=== PATIENT | female | born 1935 | race Caucasian/White ===

== ENCOUNTER → 2016-03-27 | Outpatient (CLI) | payer MEDICARE, BC ==
[2016-03-27 11:38] LABS: PROTHROMBIN TIME 18.9 SEC (11.4-15.4)
== END ==
LOC: OD 09:59
PROVIDERS: ATTEND Internal Medicine
DX: Z79.01 Long term (current) use of anticoagulants (principal)
CPT/HCPCS: 36415; 85610

== ENCOUNTER → 2016-04-08 | Outpatient (CLI) | payer MEDICARE, BC ==
[2016-04-08 12:01] LABS: PROTHROMBIN TIME 24.5 SEC (11.4-15.4)
== END ==
LOC: OD 10:54
PROVIDERS: ATTEND Internal Medicine
DX: Z79.01 Long term (current) use of anticoagulants (principal)
CPT/HCPCS: 36415; 85610

== ENCOUNTER → 2016-04-16 | Outpatient (CLI) | payer MEDICARE, BC ==
--- NOTE | 2016-04-16 17:06 | XCELERA REPORT ---
[address] [address] Upper Extremity Arterial Evaluation Name: ACE BREWER Age: 80 yrs Gender: Female : 1935 Patient Status: Outpatient Patient Location: Study Date: 04/16/2016 10:44 AM Procedure: A duplex scan of the upper extremity arteries was performed on the right. Reason For Study: RUE PAIN, CLAUDICATION, PVD Ordering Physician: TEREZA MARTIN Performed By: Celeste Husain Measurements and Calculations Right Left Prox SCLA PSV -91.3 cm/sec Mid SCLA PSV 100.2 cm/sec Ax A PSV 86.4 cm/sec Prox Brach A PSV 123.2 cm/sec Dist Brach A PSV 93.4 cm/sec Dist Rad A PSV 41.3 cm/sec Dist Ulnar A PSV 53.9 cm/sec Ax A PSV 86.4 cm/sec Dist Brach A PSV 93.4 cm/sec Dist Rad A PSV 41.3 cm/sec Dist Ulnar A PSV 53.9 cm/sec Mid SCLA PSV 100.2 cm/sec Prox Brach A PSV 123.2 cm/sec Right Side Arterial Evaluation Normal velocity, waveform and multiphasic flow are present, from the Common Carotid artery to the forearm vessels. 0 % stenosis is noted. Interpretation Summary No hemodynamically significant lesions noted in the right upper extremity arteries, on duplex imaging, at rest. : TEREZA MARTIN, [place] >
== END ==
LOC: SP 10:37
PROVIDERS: ATTEND Internal Medicine
DX: M79.601 Pain in right arm (principal); I73.9 Peripheral vascular disease, unspecified
CPT/HCPCS: 93931

== ENCOUNTER → 2016-05-09 | Outpatient (CLI) | payer MEDICARE, BC ==
[2016-05-09 13:40] LABS: PROTHROMBIN TIME 22.9 SEC (11.4-15.4)
== END ==
LOC: OD 12:36
PROVIDERS: ATTEND Internal Medicine
DX: Z79.01 Long term (current) use of anticoagulants (principal)
CPT/HCPCS: 36415; 85610

== ENCOUNTER → 2016-06-11 | Outpatient (CLI) | payer MEDICARE, BC ==
[2016-06-11 12:47] LABS: PROTHROMBIN TIME 28.1 SEC (11.4-15.4)
== END ==
LOC: OD 11:58
PROVIDERS: ATTEND Internal Medicine
DX: Z79.01 Long term (current) use of anticoagulants (principal)
CPT/HCPCS: 36415; 85610

== ENCOUNTER → 2016-07-15 | Outpatient (CLI) | payer MEDICARE, BC ==
[2016-07-15 12:33] LABS: PROTHROMBIN TIME 22.6 SEC (11.4-15.4)
== END ==
LOC: OD 11:32
PROVIDERS: ATTEND Internal Medicine
DX: Z79.01 Long term (current) use of anticoagulants (principal); Z51.81 Encounter for therapeutic drug level monitoring
CPT/HCPCS: 36415; 85610

== ENCOUNTER → 2016-08-06 | Outpatient (CLI) | payer MEDICARE, BC ==
[2016-08-06 11:30] LABS: ABSOLUTE BASOPHILS # (AUTO) 0.1 10^3/uL (0.0-0.2); ABSOLUTE EOSINOPHILS # (AUTO) 0.2 10^3/uL (0.0-0.6); ABSOLUTE LYMPHOCYTES (AUTO) 1.8 10^3/uL (0.5-4.7); ABSOLUTE MONOCYTES (AUTO) 0.5 10^3/uL (0.1-1.4); ABSOLUTE NEUT (AUTO) 6.1 10^3/uL (1.7-8.2); BASOPHILS % (AUTO) 0.8 % (0-2); EOSINOPHILS % (AUTO) 2.1 % (0-6); HEMATOCRIT 45.7 % (36.0-47.0); HEMOGLOBIN 15.1 g/dL (12.0-15.5); HGB HCT DIFFERENCE -0.4; LYMPHOCYTES % (AUTO) 20.7 % (13-45); MEAN CORPUSCULAR HEMOGLOBIN 28.8 pg (27.0-33.4); MEAN CORPUSCULAR HGB CONC 33.1 g/dL (32.0-36.0); MEAN CORPUSCULAR VOLUME 87 fl (80-97); MONOCYTES % (AUTO) 5.5 % (3-13); RED BLOOD COUNT 5.26 10^6/uL (3.72-5.28); RED CELL DISTRIBUTION WIDTH 16.1 % (11.5-14.0); SEGMENTED NEUTROPHILS % (AUTO) 70.9 % (42-78); WHITE BLOOD COUNT 8.6 10^3/uL (4.0-10.5)
[2016-08-06 11:51] LABS: ALANINE AMINOTRANSFERASE 29 U/L (9-52); ALKALINE PHOSPHATASE 87 U/L (38-126); ANION GAP 9 (5-19); ASPARTATE AMINO TRANSFERASE 22 U/L (14-36); BILIRUBIN,DIRECT 0.3 mg/dL (0.0-0.4); BILIRUBIN,TOTAL 0.7 mg/dL (0.2-1.3); BLOOD UREA NITROGEN 20 mg/dL (7-20); CALCIUM 9.4 mg/dL (8.4-10.2); CARBON DIOXIDE 28 mmol/L (22-30); CHLORIDE 104 mmol/L (98-107); CHOLESTEROL 188.14 mg/dL (0-200); CREATININE RESULT 0.59 mg/dL (0.52-1.25); Direct HDL 44 mg/dL (>40); GLUCOSE 87 mg/dL (75-110); POTASSIUM 4.8 mmol/L (3.6-5.0); SODIUM 140.5 mmol/L (137-145); TOTAL PROTEIN 6.7 g/dL (6.3-8.2); TRIGLYCERIDES 124 mg/dL (<150); URIC ACID 6.8 mg/dL (2.5-7.5)
[2016-08-06 12:02] LABS: DIRECT LDL 99 mg/dL (<100)
== END ==
LOC: OD 10:08
PROVIDERS: ATTEND Internal Medicine
DX: M10.9 Gout, unspecified (principal); I10 Essential (primary) hypertension; E78.5 Hyperlipidemia, unspecified
CPT/HCPCS: 36415; 80053; 80061; 84443; 84550; 85025

== ENCOUNTER → 2016-09-04 | Outpatient (CLI) | payer MEDICARE, BC | LOC: OD 09:12 | PROVIDERS: ATTEND Internal Medicine | DX: Z79.01 Long term (current) use of anticoagulants (principal) | CPT/HCPCS: 36415; 85610 ==

== ENCOUNTER → 2016-09-16 | Outpatient (CLI) | payer MEDICARE, BC | LOC: OD 10:21 | PROVIDERS: ATTEND Internal Medicine | DX: Z79.01 Long term (current) use of anticoagulants (principal); Z51.81 Encounter for therapeutic drug level monitoring | CPT/HCPCS: 36415; 85610 ==

== ENCOUNTER → 2016-10-15 | Outpatient (CLI) | payer MEDICARE, BC ==
[2016-10-15 16:10] LABS: PROTHROMBIN TIME 22.6 SEC (11.4-15.4)
== END ==
LOC: OD 09:08
PROVIDERS: ATTEND Internal Medicine
DX: Z79.01 Long term (current) use of anticoagulants (principal)
CPT/HCPCS: 36415; 85610

== ENCOUNTER → 2016-10-25 | Outpatient (CLI) | payer MEDICARE, BC ==
[2016-10-25 10:00] LABS: PROTHROMBIN TIME 31.4 SEC (11.4-15.4)
== END ==
LOC: OD 08:47
PROVIDERS: ATTEND Internal Medicine
DX: Z79.01 Long term (current) use of anticoagulants (principal)
CPT/HCPCS: 36415; 85610

== ENCOUNTER → 2016-11-20 | Outpatient (CLI) | payer MEDICARE, BC ==
[2016-11-20 10:59] LABS: PROTHROMBIN TIME 31.2 SEC (11.4-15.4)
== END ==
LOC: OD 09:02
PROVIDERS: ATTEND Internal Medicine
DX: Z79.01 Long term (current) use of anticoagulants (principal)
CPT/HCPCS: 36415; 85610

== ENCOUNTER → 2016-12-23 | Outpatient (CLI) | payer MEDICARE, BC | LOC: OD 11:42 | PROVIDERS: ATTEND Internal Medicine | DX: Z79.01 Long term (current) use of anticoagulants (principal) | CPT/HCPCS: 36415; 85610 ==

== ENCOUNTER → 2017-01-20 | Outpatient (CLI) | payer MEDICARE, BC ==
[2017-01-20 11:08] LABS: PROTHROMBIN TIME 36.7 SEC (11.4-15.4)
== END ==
LOC: OD 09:35
PROVIDERS: ATTEND Internal Medicine
DX: Z79.01 Long term (current) use of anticoagulants (principal)
CPT/HCPCS: 36415; 85610

== ENCOUNTER → 2017-02-03 | Outpatient (CLI) | payer MEDICARE, BC ==
[2017-02-03 12:05] LABS: PROTHROMBIN TIME 22.8 SEC (11.4-15.4)
== END ==
LOC: OD 10:27
PROVIDERS: ATTEND Internal Medicine
DX: Z79.01 Long term (current) use of anticoagulants (principal)
CPT/HCPCS: 36415; 85610

== ENCOUNTER → 2017-02-20 | Outpatient (CLI) | payer MEDICARE, BC ==
[2017-02-20 12:58] LABS: PROTHROMBIN TIME 21.7 SEC (11.4-15.4)
== END ==
LOC: OD 11:42
PROVIDERS: ATTEND Internal Medicine
DX: Z79.01 Long term (current) use of anticoagulants (principal)
CPT/HCPCS: 36415; 85610

== ENCOUNTER → 2017-03-04 | Outpatient (CLI) | payer MEDICARE, BC ==
[2017-03-04 14:30] LABS: PROTHROMBIN TIME 20.6 SEC (11.4-15.4)
== END ==
LOC: OD 13:55
PROVIDERS: ATTEND Internal Medicine
DX: Z51.81 Encounter for therapeutic drug level monitoring (principal); Z79.01 Long term (current) use of anticoagulants
CPT/HCPCS: 36415; 85610

== ENCOUNTER → 2017-03-20 | Outpatient (CLI) | payer MEDICARE, BC ==
[2017-03-20 10:37] LABS: INTERNATIONAL RATION (INR) 2.38; PROTHROMBIN TIME 27.2 SEC (11.4-15.4)
== END ==
LOC: OD 09:42
PROVIDERS: ATTEND Internal Medicine
DX: Z79.01 Long term (current) use of anticoagulants (principal)
CPT/HCPCS: 36415; 85610

== ENCOUNTER → 2017-04-22 | Outpatient (CLI) | payer MEDICARE, BC ==
[2017-04-22 10:25] LABS: INTERNATIONAL RATION (INR) 1.55; PROTHROMBIN TIME 19.5 SEC (11.4-15.4)
== END ==
LOC: OD 09:33
PROVIDERS: ATTEND Internal Medicine
DX: Z51.81 Encounter for therapeutic drug level monitoring (principal); Z79.01 Long term (current) use of anticoagulants
CPT/HCPCS: 36415; 85610

== ENCOUNTER → 2017-05-06 | Outpatient (CLI) | payer MEDICARE, BC ==
[2017-05-06 10:19] LABS: INTERNATIONAL RATION (INR) 2.17; PROTHROMBIN TIME 25.3 SEC (11.4-15.4)
== END ==
LOC: OD 09:28
PROVIDERS: ATTEND Internal Medicine
DX: Z51.81 Encounter for therapeutic drug level monitoring (principal); Z79.01 Long term (current) use of anticoagulants
CPT/HCPCS: 36415; 85610

== ENCOUNTER → 2017-06-05 | Outpatient (CLI) | payer MEDICARE, BC ==
[2017-06-05 11:54] LABS: INTERNATIONAL RATION (INR) 2.32; PROTHROMBIN TIME 26.7 SEC (11.4-15.4)
== END ==
LOC: OD 10:33
PROVIDERS: ATTEND Internal Medicine
DX: Z79.01 Long term (current) use of anticoagulants (principal)
CPT/HCPCS: 36415; 85610

== ENCOUNTER → 2017-07-09 | Outpatient (CLI) | payer MEDICARE, BC ==
[2017-07-09 13:22] LABS: INTERNATIONAL RATION (INR) 5.55; PROTHROMBIN TIME 52.8 SEC (11.4-15.4)
== END ==
LOC: OD 09:26
PROVIDERS: ATTEND Internal Medicine
DX: Z79.01 Long term (current) use of anticoagulants (principal)
CPT/HCPCS: 36415; 85610

== ENCOUNTER 2017-09-01 10:31 | Inpatient (IN) | payer MEDICARE, BC ==
--- NOTE | 2017-09-01 12:14 | XCELERA REPORT ---
[address] [address] Lower Extremity Venous Evaluation Name: ACE BREWER Age: 82 yrs Gender: Female : 1935 Patient Status: Outpatient Patient Location: Study Date: 09/01/2017 11:05 AM Procedure: Color flow and duplex imaging bilaterally of the veins of the lower extremities as well as the Common Femoral veins. Reason For Study: RLE ACUTE EMBOLISM AND THROMBOSIS RT TIBIAL VEIN Ordering Physician: TEREZA MARTIN Performed By: Monique Camejo Right Sided Venous Evaluation Abnormal vessel filling , no compression and , enlarged, echogenic content, no Colour flow in the distal Femoral and Popliteal. Gastrocnemius has some recanalization. Superficial phlebitis in a varicose vein. Left Sided Venous Evaluation The left common femoral vein is fully compressible. Spontaneous and phasic flow is present in the left common femoral vein. Interpretation Summary Fairly fresh looking DVT in the Femoral and Popliteal, Aged in Gastrocnemius. Some superficial phlebitis. In the Right lower extremity. : TEREZA MARTIN [place]
[2017-09-01] MEDS ORDERED: MAGNESIUM HYDROXIDE SUSP 30 ML UDCUP PO PRN (15:43)
--- NOTE | 2017-09-01 16:57 | PDOC H&P ---
History of Present Illness Admission Date/PCP: 09/01/17 15:33 TEREZA MARTIN, Patient complains of: right leg pain History of Present Illness: ACE BREWER is a 82 year old female Past Medical History Cardiac Medical History: Reports: DVT, Hypertension Musculoskeltal Medical History: Reports: Arthritis Past Surgical History Past Surgical History: Reports: Hysterectomy Social History Smoking Status: Never Smoker Frequency of Alcohol Use: None Hx Recreational Drug Use: No - Advance Directive Resuscitation Status: Full Code Family History Family History: Reviewed & Not Pertinent Parental Family History Reviewed: Yes Children Family History Reviewed: Yes Sibling(s) Family History Reviewed.: Yes Review of Systems All systems: as per H Physical Exam General appearance: PRESENT: mild distress Head exam: PRESENT: atraumatic Eye exam: PRESENT: conjunctiva pink Neck exam: ABSENT: carotid bruit, JVD Respiratory exam: PRESENT: clear to auscultation erika Cardiovascular exam: PRESENT: RRR, +S1, +S2 Pulses: PRESENT: +1 pedal pulses bilateral GI/Abdominal exam: PRESENT: soft Extremities exam: PRESENT: full ROM, pedal edema, tenderness Musculoskeletal exam: PRESENT: full ROM Neurological exam: PRESENT: alert, awake, oriented to person, oriented to place , oriented to time Assessment & Plan - Diagnosis (1) Acute deep vein thrombosis (DVT) of right lower extremity Qualifiers: Affected thrombotic vein of extremity: femoral Qualified Code(s): I82.411 - Acute embolism and thrombosis of right femoral vein Is this a current diagnosis for this admission?: Yes Plan: We will start Lovenox. Keep leg elevated and consider starting Coumadin. 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 We will need acute treatment for DVT/PE with Lovenox and overlap with Coumadin - Inpatient Certification Medical Necessity: Failure to Improve With Outpatient Therapy, Need for Pain Control, Risk of Complication if Not Cared For in Hospital
[2017-09-01 17:23] LABS: ABSOLUTE BASOPHILS # (AUTO) 0.1 10^3/uL (0.0-0.2); ABSOLUTE EOSINOPHILS # (AUTO) 0.2 10^3/uL (0.0-0.6); ABSOLUTE LYMPHOCYTES (AUTO) 2.1 10^3/uL (0.5-4.7); ABSOLUTE MONOCYTES (AUTO) 0.7 10^3/uL (0.1-1.4); ABSOLUTE NEUT (AUTO) 6.6 10^3/uL (1.7-8.2); BASOPHILS % (AUTO) 1.4 % (0-2); HEMATOCRIT 45.3 % (36.0-47.0); HEMOGLOBIN 15.3 g/dL (12.0-15.5); LYMPHOCYTES % (AUTO) 21.8 % (13-45); MEAN CORPUSCULAR HEMOGLOBIN 30.6 pg (27.0-33.4); MEAN CORPUSCULAR HGB CONC 33.8 g/dL (32.0-36.0); MEAN CORPUSCULAR VOLUME 91 fl (80-97); MONOCYTES % (AUTO) 6.8 % (3-13); PLATELET COUNT 531 10^3/uL (150-450); RED CELL DISTRIBUTION WIDTH 16.7 % (11.5-14.0); TOTAL CELLS COUNTED % (AUTO) 100 %; WHITE BLOOD COUNT 9.8 10^3/uL (4.0-10.5)
[2017-09-01 17:30] LABS: INTERNATIONAL RATION (INR) 1.75; PROTHROMBIN TIME 21.3 SEC (11.4-15.4)
[2017-09-01 17:31] LABS: PARTIAL THROMBOPLASTIN TIME 45.9 SEC (23.5-35.8)
[2017-09-01 17:35] LABS: ALANINE AMINOTRANSFERASE 24 U/L (9-52); ALBUMIN 4.5 g/dL (3.5-5.0); ALKALINE PHOSPHATASE 73 U/L (38-126); ANION GAP 12 (5-19); ASPARTATE AMINO TRANSFERASE 23 U/L (14-36); BILIRUBIN,DIRECT 0.1 mg/dL (0.0-0.4); BILIRUBIN,TOTAL 0.5 mg/dL (0.2-1.3); BLOOD UREA NITROGEN 19 mg/dL (7-20); CARBON DIOXIDE 30 mmol/L (22-30); CHLORIDE 103 mmol/L (98-107); GLUCOSE 88 mg/dL (75-110); POTASSIUM 4.3 mmol/L (3.6-5.0); SODIUM 144.5 mmol/L (137-145); TOTAL PROTEIN 7.2 g/dL (6.3-8.2)
[2017-09-01] MEDS ORDERED: ENOXAPARIN SODIUM INJ 60 MG/0.6 ML DISP.SYRIN SUBCUT SCH (22:00)
[2017-09-01] MEDS: ENOXAPARIN SODIUM INJ 60 MG/0.6 ML DISP.SYRIN SUBCUT SCH (22:57)
[2017-09-01] MEDS: GABAPENTIN 100 MG CAPSULE PO SCH (22:58)
[2017-09-01] MEDS: OXYCODONE-ACETAMINOPHEN 5-325 MG TABLET PO PRN (22:58)
[2017-09-01] MEDS: DOCUSATE SODIUM 100 MG CAPSULE PO SCH (22:58)
[2017-09-02] MEDS: GABAPENTIN 100 MG CAPSULE PO SCH ×3 (05:57→21:18)
[2017-09-02] MEDS: OXYCODONE-ACETAMINOPHEN 5-325 MG TABLET PO PRN ×2 (05:57→11:11)
[2017-09-02] MEDS ORDERED: CEPHALEXIN 500 MG CAPSULE PO SCH (06:00)
[2017-09-02 06:04] LABS: APPEARANCE,URINE CLEAR; BILIRUBIN,URINE NEGATIVE (NEGATIVE); COLOR,URINE YELLOW; GLUCOSE, URINE NEGATIVE (NEGATIVE); KETONES,URINE NEGATIVE (NEGATIVE); LEUKOCYTE ESTERASE,URINE NEGATIVE (NEGATIVE); NITRITE,URINE NEGATIVE (NEGATIVE); PROTEIN,URINE NEGATIVE (NEGATIVE); URINE SPECIFIC GRAVITY 1.009; UROBILINOGEN,URINE NEGATIVE mg/dL (<2.0)
[2017-09-02] MEDS: ONDANSETRON 4 MG TAB.RAPDIS PO PRN ×3 (09:08→18:49)
[2017-09-02] MEDS ORDERED: [UNRECOGNIZED DRUG - OTHER] PO SCH (10:00)
[2017-09-02] MEDS: DOCUSATE SODIUM 100 MG CAPSULE PO SCH ×2 (11:09→21:18)
[2017-09-02] MEDS: ENOXAPARIN SODIUM INJ 60 MG/0.6 ML DISP.SYRIN SUBCUT SCH ×2 (11:12→21:18)
[2017-09-02] MEDS: ATORVASTATIN CALCIUM 20 MG TABLET PO SCH (11:13)
[2017-09-02] MEDS: VALACYCLOVIR HCL 500 MG TABLET PO SCH (11:15)
[2017-09-02] MEDS: RAMIPRIL 10 MG CAPSULE PO SCH (11:16)
[2017-09-02] MEDS: HYDROCHLOROTHIAZIDE 12.5 MG CAPSULE PO SCH (11:20)
[2017-09-02] MEDS: METOPROLOL SUCCINATE 50 MG TAB.SR.24H PO SCH (11:24)
--- NOTE | 2017-09-02 11:30 | PDOC PROGRESS REPORT ---
Subjective Progress Note for:: 09/02/17 Subjective:: The patient states to feel the same. She is still having pain in her right calf. She has received 3 doses of Lovenox. Discussed the failure of Xarelto and the need to start with Coumadin again Reason For Visit: ACUTE DVT/FAILED OUTPATIENT TREATMENT Physical Exam Vital Signs: Temp Pulse Resp BP Pulse Ox 98.2 F 52 L 15 174/74 H 94 09/02/17 07:32 09/02/17 07:32 09/02/17 07:32 09/02/17 07:32 09/02/17 07:32 Intake & Output 09/01/17 09/02/17 09/03/17 06:59 06:59 06:59 Intake Total 0 Output Total 400 Balance -400 Weight 58 kg General appearance: PRESENT: mild distress Head exam: PRESENT: atraumatic Eye exam: PRESENT: conjunctiva pink Neck exam: ABSENT: carotid bruit, JVD Respiratory exam: PRESENT: clear to auscultation erika Cardiovascular exam: PRESENT: RRR, +S1, +S2 Pulses: PRESENT: +1 pedal pulses bilateral GI/Abdominal exam: PRESENT: normal bowel sounds, soft Extremities exam: PRESENT: tenderness Musculoskeletal exam: PRESENT: full ROM Neurological exam: PRESENT: alert, awake Results Laboratory Results: 09/01/17 17:10 09/01/17 17:10 09/01/17 09/01/17 09/02/17 17:10 17:10 05:25 WBC 9.8 RBC 5.00 Hgb 15.3 Hct 45.3 MCV 91 MCH 30.6 MCHC 33.8 RDW 16.7 H Plt Count 531 H Seg Neutrophils % 68.0 Lymphocytes % 21.8 Monocytes % 6.8 Eosinophils % 2.0 Basophils % 1.4 Absolute Neutrophils 6.6 Absolute Lymphocytes 2.1 Absolute Monocytes 0.7 Absolute Eosinophils 0.2 Absolute Basophils 0.1 Sodium 144.5 Potassium 4.3 Chloride 103 Carbon Dioxide 30 Anion Gap 12 BUN 19 Creatinine 0.72 Est GFR ( Amer) > 60 Est GFR (Non-Af Amer) > 60 Glucose 88 Calcium 10.0 Total Bilirubin 0.5 AST 23 ALT 24 Alkaline Phosphatase 73 Total Protein 7.2 Albumin 4.5 Urine Color YELLOW Urine Appearance CLEAR Urine pH 5.0 Ur Specific [place] 1.009 Urine Protein NEGATIVE Urine Glucose (UA) NEGATIVE Urine Ketones NEGATIVE Urine Blood NEGATIVE Urine Nitrite NEGATIVE Ur Leukocyte Esterase NEGATIVE Urine WBC (Auto) 2 Urine RBC (Auto) 0 Assessment & Plan - Diagnosis (1) Acute deep vein thrombosis (DVT) of right lower extremity Qualifiers: Affected thrombotic vein of extremity: popliteal Qualified Code(s): I82.431 - Acute embolism and thrombosis of right popliteal vein Is this a current diagnosis for this admission?: Yes Plan: We will continue with Lovenox and start Coumadin (2) Hypertension Is this a current diagnosis for this admission?: Yes Plan: Continue current blood pressure medications (3) Failure of outpatient treatment Is this a current diagnosis for this admission?: Yes Plan: We stopped the Xarelto. Start Lovenox and start Coumadin
[2017-09-02] MEDS: LANSOPRAZOLE 30 MG TAB.RAP.DR PO SCH (16:35)
[2017-09-02] MEDS: TRAMADOL HCL 50 MG TABLET PO PRN (19:42)
[2017-09-02] MEDS ORDERED: WARFARIN SODIUM 5 MG TABLET PO ONE (23:15)
[2017-09-03 05:06] LABS: HEMATOCRIT 42.6 % (36.0-47.0); HEMOGLOBIN 14.4 g/dL (12.0-15.5); MEAN CORPUSCULAR HEMOGLOBIN 30.6 pg (27.0-33.4); MEAN CORPUSCULAR HGB CONC 33.7 g/dL (32.0-36.0); MEAN CORPUSCULAR VOLUME 91 fl (80-97); PLATELET COUNT 385 10^3/uL (150-450); RED BLOOD COUNT 4.69 10^6/uL (3.72-5.28); RED CELL DISTRIBUTION WIDTH 16.3 % (11.5-14.0); WHITE BLOOD COUNT 9.3 10^3/uL (4.0-10.5)
[2017-09-03] MEDS: LANSOPRAZOLE 30 MG TAB.RAP.DR PO SCH ×2 (06:00→17:32)
[2017-09-03] MEDS: TRAMADOL HCL 50 MG TABLET PO PRN (06:01)
[2017-09-03] MEDS: GABAPENTIN 100 MG CAPSULE PO SCH ×3 (06:01→21:54)
--- NOTE | 2017-09-03 08:15 | PDOC PROGRESS REPORT ---
Subjective Progress Note for:: 09/03/17 Subjective:: The patient states to feel slightly better. She had couple of episodes of vomiting yesterday which have improved with stopping the Keflex and starting her on Prevacid. She is still having pain in her right calf. She has received Coumadin last night. Reason For Visit: ACUTE DVT/FAILED OUTPATIENT TREATMENT Physical Exam Vital Signs: Temp Pulse Resp BP Pulse Ox 98.2 F 59 L 16 138/68 H 94 09/03/17 08:00 09/03/17 08:00 09/03/17 08:00 09/03/17 08:00 09/02/17 23:38 Intake & Output 09/02/17 09/03/17 09/04/17 06:59 06:59 06:59 Intake Total 0 830 Output Total 400 1150 Balance -400 -320 Weight 58 kg 58.9 kg General appearance: PRESENT: mild distress Head exam: PRESENT: atraumatic Eye exam: PRESENT: conjunctiva pink Neck exam: ABSENT: carotid bruit, JVD Respiratory exam: PRESENT: clear to auscultation erika Cardiovascular exam: PRESENT: RRR, +S1, +S2 Pulses: PRESENT: +1 pedal pulses bilateral GI/Abdominal exam: PRESENT: normal bowel sounds, soft Extremities exam: PRESENT: tenderness Musculoskeletal exam: PRESENT: tenderness Neurological exam: PRESENT: alert, awake Results Laboratory Results: 09/03/17 04:34 09/01/17 17:10 09/03/17 04:34 WBC 9.3 RBC 4.69 Hgb 14.4 Hct 42.6 MCV 91 MCH 30.6 MCHC 33.7 RDW 16.3 H Plt Count 385 Assessment & Plan - Diagnosis (1) Acute deep vein thrombosis (DVT) of right lower extremity Qualifiers: Affected thrombotic vein of extremity: popliteal Qualified Code(s): I82.431 - Acute embolism and thrombosis of right popliteal vein Is this a current diagnosis for this admission?: Yes Plan: Continue Lovenox and Coumadin. Out of bed to ambulate (2) Hypertension Is this a current diagnosis for this admission?: Yes Plan: Continue current meds (3) Failure of outpatient treatment Is this a current diagnosis for this admission?: Yes Plan: We stopped the Xarelto. Start Lovenox and start Coumadin
[2017-09-03] MEDS: OXYCODONE-ACETAMINOPHEN 5-325 MG TABLET PO PRN (09:02)
[2017-09-03] MEDS: METOPROLOL SUCCINATE 50 MG TAB.SR.24H PO SCH (09:03)
[2017-09-03] MEDS: ATORVASTATIN CALCIUM 20 MG TABLET PO SCH (09:04)
[2017-09-03] MEDS: RAMIPRIL 10 MG CAPSULE PO SCH (09:04)
[2017-09-03] MEDS: HYDROCHLOROTHIAZIDE 12.5 MG CAPSULE PO SCH (09:04)
[2017-09-03] MEDS: VALACYCLOVIR HCL 500 MG TABLET PO SCH (09:04)
[2017-09-03] MEDS: DOCUSATE SODIUM 100 MG CAPSULE PO SCH ×2 (09:04→21:54)
[2017-09-03] MEDS: ENOXAPARIN SODIUM INJ 60 MG/0.6 ML DISP.SYRIN SUBCUT SCH ×2 (09:05→21:53)
[2017-09-03 09:55] LABS: APPEARANCE,URINE CLEAR; BILIRUBIN,URINE NEGATIVE (NEGATIVE); COLOR,URINE YELLOW; GLUCOSE, URINE NEGATIVE (NEGATIVE); KETONES,URINE NEGATIVE (NEGATIVE); LEUKOCYTE ESTERASE,URINE NEGATIVE (NEGATIVE); NITRITE,URINE NEGATIVE (NEGATIVE); PROTEIN,URINE NEGATIVE (NEGATIVE); URINE SPECIFIC GRAVITY 1.013; UROBILINOGEN,URINE NEGATIVE mg/dL (<2.0)
[2017-09-03] MEDS: ONDANSETRON 4 MG TAB.RAPDIS PO PRN ×2 (15:30→20:00)
[2017-09-03] MEDS: WARFARIN SODIUM 5 MG TABLET PO SCH (21:54)
[2017-09-04 06:18] LABS: ABSOLUTE BASOPHILS # (AUTO) 0.1 10^3/uL (0.0-0.2); ABSOLUTE EOSINOPHILS # (AUTO) 0.2 10^3/uL (0.0-0.6); ABSOLUTE LYMPHOCYTES (AUTO) 1.9 10^3/uL (0.5-4.7); ABSOLUTE MONOCYTES (AUTO) 0.5 10^3/uL (0.1-1.4); ABSOLUTE NEUT (AUTO) 5.2 10^3/uL (1.7-8.2); BASOPHILS % (AUTO) 1.2 % (0-2); EOSINOPHILS % (AUTO) 2.5 % (0-6); HEMOGLOBIN 14.4 g/dL (12.0-15.5); LYMPHOCYTES % (AUTO) 23.4 % (13-45); MEAN CORPUSCULAR HEMOGLOBIN 30.4 pg (27.0-33.4); MEAN CORPUSCULAR HGB CONC 33.4 g/dL (32.0-36.0); MEAN CORPUSCULAR VOLUME 91 fl (80-97); MONOCYTES % (AUTO) 6.6 % (3-13); PLATELET COUNT 396 10^3/uL (150-450); RED BLOOD COUNT 4.73 10^6/uL (3.72-5.28); RED CELL DISTRIBUTION WIDTH 17.2 % (11.5-14.0); SEGMENTED NEUTROPHILS % (AUTO) 66.3 % (42-78); TOTAL CELLS COUNTED % (AUTO) 100 %; WHITE BLOOD COUNT 7.9 10^3/uL (4.0-10.5)
[2017-09-04 06:22] LABS: INTERNATIONAL RATION (INR) 1.67; PROTHROMBIN TIME 20.5 SEC (11.4-15.4)
[2017-09-04] MEDS: GABAPENTIN 100 MG CAPSULE PO SCH ×3 (06:23→22:37)
[2017-09-04] MEDS: LANSOPRAZOLE 30 MG TAB.RAP.DR PO SCH ×2 (06:23→17:55)
[2017-09-04 06:32] LABS: ANION GAP 9 (5-19); BLOOD UREA NITROGEN 14 mg/dL (7-20); CALCIUM 9.1 mg/dL (8.4-10.2); CARBON DIOXIDE 30 mmol/L (22-30); CHLORIDE 100 mmol/L (98-107); GLUCOSE 78 mg/dL (75-110); POTASSIUM 4.2 mmol/L (3.6-5.0); SODIUM 138.5 mmol/L (137-145)
[2017-09-04] MEDS ORDERED: ACETAMINOPHEN 325 MG TABLET PO PRN (07:55)
--- NOTE | 2017-09-04 08:00 | PDOC PROGRESS REPORT ---
Subjective Progress Note for:: 09/04/17 Subjective:: The patient states to feel slightly better. She is still having pain in her right calf. Will consult vascular surgery to help with sorting out through this. Will consider using steroids as an anti-inflammatory for possible myalgias Reason For Visit: ACUTE DVT/FAILED OUTPATIENT TREATMENT Physical Exam Vital Signs: Temp Pulse Resp BP Pulse Ox 99.5 F 59 L 16 109/52 L 95 09/03/17 23:11 09/03/17 23:11 09/03/17 23:11 09/03/17 23:11 09/03/17 23:11 Intake & Output 09/03/17 09/04/17 09/05/17 06:59 06:59 06:59 Intake Total 830 480 Output Total 1150 1020 Balance -320 -540 Weight 58.9 kg 57.8 kg General appearance: PRESENT: mild distress Head exam: PRESENT: atraumatic Eye exam: PRESENT: conjunctiva pink Neck exam: ABSENT: carotid bruit, JVD Respiratory exam: PRESENT: clear to auscultation erika Cardiovascular exam: PRESENT: RRR, +S1, +S2 Pulses: PRESENT: +1 pedal pulses bilateral GI/Abdominal exam: PRESENT: normal bowel sounds, soft Extremities exam: PRESENT: tenderness Musculoskeletal exam: PRESENT: ambulatory Neurological exam: PRESENT: alert, awake Results Laboratory Results: 09/04/17 05:22 09/04/17 05:22 09/03/17 09/04/17 09/04/17 09:33 05:22 05:22 WBC 7.9 RBC 4.73 Hgb 14.4 Hct 43.0 MCV 91 MCH 30.4 MCHC 33.4 RDW 17.2 H Plt Count 396 Seg Neutrophils % 66.3 Lymphocytes % 23.4 Monocytes % 6.6 Eosinophils % 2.5 Basophils % 1.2 Absolute Neutrophils 5.2 Absolute Lymphocytes 1.9 Absolute Monocytes 0.5 Absolute Eosinophils 0.2 Absolute Basophils 0.1 Sodium 138.5 Potassium 4.2 Chloride 100 Carbon Dioxide 30 Anion Gap 9 BUN 14 Creatinine 0.61 Est GFR ( Amer) > 60 Est GFR (Non-Af Amer) > 60 Glucose 78 Calcium 9.1 Urine Color YELLOW Urine Appearance CLEAR Urine pH 5.0 Ur Specific [place] 1.013 Urine Protein NEGATIVE Urine Glucose (UA) NEGATIVE Urine Ketones NEGATIVE Urine Blood NEGATIVE Urine Nitrite NEGATIVE Ur Leukocyte Esterase NEGATIVE Urine WBC (Auto) 2 Urine RBC (Auto) 0 Assessment & Plan - Diagnosis (1) Acute deep vein thrombosis (DVT) of right lower extremity Qualifiers: Affected thrombotic vein of extremity: popliteal Qualified Code(s): I82.431 - Acute embolism and thrombosis of right popliteal vein Is this a current diagnosis for this admission?: Yes Plan: Continue Lovenox and Coumadin. Out of bed to ambulate (2) Hypertension Is this a current diagnosis for this admission?: Yes Plan: Continue current meds (3) Failure of outpatient treatment Is this a current diagnosis for this admission?: Yes
[2017-09-04] MEDS: RAMIPRIL 10 MG CAPSULE PO SCH (10:58)
[2017-09-04] MEDS: VALACYCLOVIR HCL 500 MG TABLET PO SCH (10:58)
[2017-09-04] MEDS: ENOXAPARIN SODIUM INJ 60 MG/0.6 ML DISP.SYRIN SUBCUT SCH ×2 (10:59→22:37)
[2017-09-04] MEDS: DOCUSATE SODIUM 100 MG CAPSULE PO SCH ×3 (10:59→22:37)
[2017-09-04] MEDS: METOPROLOL SUCCINATE 50 MG TAB.SR.24H PO SCH (10:59)
[2017-09-04] MEDS: ATORVASTATIN CALCIUM 20 MG TABLET PO SCH (10:59)
[2017-09-04] MEDS: HYDROCHLOROTHIAZIDE 12.5 MG CAPSULE PO SCH (10:59)
[2017-09-04] MEDS ORDERED: ONDANSETRON 4 MG TAB.RAPDIS PO PRN (13:30)
[2017-09-04] MEDS: OXYCODONE-ACETAMINOPHEN 5-325 MG TABLET PO PRN (22:37)
[2017-09-04] MEDS: WARFARIN SODIUM 5 MG TABLET PO SCH (22:43)
[2017-09-05] MEDS: LANSOPRAZOLE 30 MG TAB.RAP.DR PO SCH (06:28)
[2017-09-05] MEDS: GABAPENTIN 100 MG CAPSULE PO SCH ×2 (06:28→13:05)
[2017-09-05 07:14] LABS: HEMATOCRIT 46.1 % (36.0-47.0); HEMOGLOBIN 15.4 g/dL (12.0-15.5); MEAN CORPUSCULAR HEMOGLOBIN 30.3 pg (27.0-33.4); MEAN CORPUSCULAR HGB CONC 33.4 g/dL (32.0-36.0); MEAN CORPUSCULAR VOLUME 91 fl (80-97); PLATELET COUNT 424 10^3/uL (150-450); RED BLOOD COUNT 5.08 10^6/uL (3.72-5.28); RED CELL DISTRIBUTION WIDTH 16.8 % (11.5-14.0); WHITE BLOOD COUNT 9.2 10^3/uL (4.0-10.5)
[2017-09-05 07:24] LABS: INTERNATIONAL RATION (INR) 2.57; PROTHROMBIN TIME 28.8 SEC (11.4-15.4)
--- NOTE | 2017-09-05 08:29 | PDOC DISCHARGE SUMMARY ---
General - Admit/Disc Date/PCP Admission Date/Primary Care Provider: 09/01/17 15:33 TEREZA MARTIN, Discharge Date: 09/05/17 - Discharge Diagnosis (1) Acute deep vein thrombosis (DVT) of right lower extremity Is this a current diagnosis for this admission?: Yes Summary: Improved with 3 days of overlap between Lovenox and Coumadin. PT/INR is therapeutic (2) Hypertension Is this a current diagnosis for this admission?: Yes Summary: Stable continue current medications (3) Failure of outpatient treatment Is this a current diagnosis for this admission?: Yes Summary: PT/INR therapeutic with an overlap of Lovenox and Coumadin. - Additional Information Resuscitation Status: Full Code Discharge Diet: As Tolerated Discharge Activity: Activity As Tolerated Home Medications: Atorvastatin Calcium [Lipitor 20 mg Tablet] 20 mg PO DAILY 09/01/17 Gabapentin [Neurontin 100 mg Capsule] 100 mg PO Q8H 09/01/17 Hydrochlorothiazide [Hydrodiuril 12.5 mg Capsule] 12.5 mg PO DAILY 09/01/17 Metoprolol Succinate 50 mg PO DAILY 09/01/17 Ramipril [Altace 10 mg Capsule] 1 cap PO DAILY 09/01/17 Tramadol HCl [Ultram 50 mg Tablet] 50 mg PO Q8H PRN 09/01/17 Valacyclovir HCl [Valacyclovir] 500 mg PO DAILY 09/01/17 Vit C/E/Zn/Coppr/Lutein/Zeaxan [Preservision Areds 2 Softgel] 1 cap PO BID 09/01 History of Present Illness History of Present Illness: ACE BREWER is a 82 year old female Hospital Course Hospital Course: The patient did well after the hospitalization. She tolerated Lovenox well. She was able to ambulate. Had pain in the calf has remained stable with maybe slight improvement. She has received 4 days of overlap therapy between she did quite well in the day of discharge she appeared comfortable in no acute distress and Lovenox and Coumadin. Physical Exam Vital Signs: Temp Pulse Resp BP Pulse Ox 97.9 F 69 16 80/55 L 95 09/04/17 23:46 09/04/17 23:46 09/04/17 23:46 09/04/17 23:46 09/04/17 23:46 Intake & Output 09/04/17 09/05/17 09/06/17 06:59 06:59 06:59 Intake Total 480 960 Output Total 1020 1400 Balance -540 -440 Weight 57.8 kg 58.5 kg General appearance: PRESENT: no acute distress Head exam: PRESENT: atraumatic Eye exam: PRESENT: conjunctiva pink Neck exam: ABSENT: carotid bruit, JVD Respiratory exam: PRESENT: clear to auscultation erika Cardiovascular exam: PRESENT: RRR, +S1, +S2 Pulses: PRESENT: +1 pedal pulses bilateral GI/Abdominal exam: PRESENT: soft Extremities exam: PRESENT: tenderness Musculoskeletal exam: PRESENT: tenderness Results Laboratory Results: 09/05/17 06:34 09/04/17 05:22 09/05/17 06:34 WBC 9.2 RBC 5.08 Hgb 15.4 Hct 46.1 MCV 91 MCH 30.3 MCHC 33.4 RDW 16.8 H Plt Count 424 Qualifiers - * PATIENT BEING DISCHARGED WITH ANY OF THE FOLLOWING DIAGNOSIS: VTE (PE or DVT) VTE patient discharged on overlapping Therapy?: Yes
[2017-09-05] MEDS: METOPROLOL SUCCINATE 50 MG TAB.SR.24H PO SCH (10:15)
[2017-09-05] MEDS: VALACYCLOVIR HCL 500 MG TABLET PO SCH (10:15)
[2017-09-05] MEDS: RAMIPRIL 10 MG CAPSULE PO SCH (10:15)
[2017-09-05] MEDS: HYDROCHLOROTHIAZIDE 12.5 MG CAPSULE PO SCH (10:16)
[2017-09-05] MEDS: ENOXAPARIN SODIUM INJ 60 MG/0.6 ML DISP.SYRIN SUBCUT SCH (10:16)
[2017-09-05 12:39] VITALS: BP 138/68
[2017-09-05] MEDS: TRAMADOL HCL 50 MG TABLET PO PRN (13:04)
[2017-09-05] MEDS ORDERED: ATORVASTATIN CALCIUM 20 MG TABLET PO SCH (22:00)
--- NOTE | 2017-09-08 10:44 | PDOC CONSULTATION ---
Consultation Consult Date: 09/04/17 Attending physician:: MEHRAN DASH Consult reason:: Right lower extremity DVT with persisting pain History of Present Illness Admission Date/PCP: 09/01/17 15:33 TEREZA MARTIN, Patient complains of: Right lower extremity pain and tenderness. History of Present Illness: ACE BREWER is a 82 year old female The patient has been diagnosed with deep venous thrombosis in the right lower extremity for some weeks now. She has been on Xarelto. She has noticed present and increasing pain. Most of the pain is focused on an area just above the medial right ankle at this point. She denies having any insect bites. She does mention having had deep venous thrombosis of the left lower extremity 15 years ago. She has been on Coumadin since and was discontinued shortly before this episode of DVT. Past Medical History Cardiac Medical History: Reports: DVT, Hypertension Musculoskeltal Medical History: Reports: Arthritis Psychiatric Medical History: Denies: Depression Past Surgical History Past Surgical History: Reports: Hysterectomy Social History Smoking Status: Never Smoker Frequency of Alcohol Use: None Hx Recreational Drug Use: No Drugs: None Hx Prescription Drug Abuse: No - Advance Directive Resuscitation Status: Full Code Family History Family History: Reviewed & Not Pertinent Parental Family History Reviewed: No Children Family History Reviewed: No Sibling(s) Family History Reviewed.: No Medication/Allergy Home Medications: Atorvastatin Calcium [Lipitor 20 mg Tablet] 20 mg PO DAILY 09/01/17 Gabapentin [Neurontin 100 mg Capsule] 100 mg PO Q8H 09/01/17 Hydrochlorothiazide [Hydrodiuril 12.5 mg Capsule] 12.5 mg PO DAILY 09/01/17 Metoprolol Succinate 50 mg PO DAILY 09/01/17 Ramipril [Altace 10 mg Capsule] 1 cap PO DAILY 09/01/17 Tramadol HCl [Ultram 50 mg Tablet] 50 mg PO Q8H PRN 09/01/17 Valacyclovir HCl [Valacyclovir] 500 mg PO DAILY 09/01/17 Vit C/E/Zn/Coppr/Lutein/Zeaxan [Preservision Areds 2 Softgel] 1 cap PO BID 09/01 Allergies/Adverse Reactions: Sulfa (Sulfonamide Antibiotics) Allergy (Intermediate, Verified 09/02/17 14:53) rash Physical Exam Vital Signs: Temp Pulse Resp BP Pulse Ox 99.5 F 59 L 16 109/52 L 95 09/03/17 23:11 09/03/17 23:11 09/03/17 23:11 09/03/17 23:11 09/03/17 23:11 Intake & Output 09/03/17 09/04/17 09/05/17 06:59 06:59 06:59 Intake Total 830 480 3 Output Total 1150 1020 Balance -320 -540 3 Weight 58.9 kg 57.8 kg Additional comments: Constitutional: Well-developed well-nourished lady, slight build. No apparent acute distress. Eyes: Mucous membranes pink and moist, pupils equal and reactive to light. Conjunctiva normal. Cornea normal. Wears spectacles. ENT: Hearing grossly normal. External pinna normal to inspection. Tongue normal to inspection. Cardiac: Heart sounds 1 and 2 normal, no murmurs. Heartbeat is irregularly irregular suggestive of atrial fibrillation. Respiratory breath sounds are present bilaterally, normal. Normal respiratory effort. Skin: Mostly normal for age. Some small moderate size varicosities noted in the both legs. On the right side just above the ankle is an area of firmness redness and tenderness about 4 cm across. Suggestive of localized cellulitis or hematoma. Psychiatric: Judgment, memory, insight seem normal. Mood is pleasant and appropriate. Extremities: Upper extremities show normal range of movement. Pulses present noted to the radial arteries. Capillary refill normal. No cyanosis noted. No muscle wasting noted. Lower extremities show normal range of movement. Pulses present noted at the posterior tibial and the dorsalis pedis artery. Capillary refill normal. Mild cyanosis noted distally in the right foot. No muscle wasting noted.Some small moderate size varicosities noted in the both legs. On the right side just above the ankle is an area of firmness redness and tenderness about 4 cm across. Suggestive of localized cellulitis or hematoma. Results Laboratory Results: 09/04/17 05:22 09/04/17 05:22 09/04/17 09/04/17 05:22 05:22 WBC 7.9 RBC 4.73 Hgb 14.4 Hct 43.0 MCV 91 MCH 30.4 MCHC 33.4 RDW 17.2 H Plt Count 396 Seg Neutrophils % 66.3 Lymphocytes % 23.4 Monocytes % 6.6 Eosinophils % 2.5 Basophils % 1.2 Absolute Neutrophils 5.2 Absolute Lymphocytes 1.9 Absolute Monocytes 0.5 Absolute Eosinophils 0.2 Absolute Basophils 0.1 Sodium 138.5 Potassium 4.2 Chloride 100 Carbon Dioxide 30 Anion Gap 9 BUN 14 Creatinine 0.61 Est GFR ( Amer) > 60 Est GFR (Non-Af Amer) > 60 Glucose 78 Calcium 9.1 Assessment & Plan - Diagnosis (1) Acute deep vein thrombosis (DVT) of right lower extremity Qualifiers: Affected thrombotic vein of extremity: popliteal Qualified Code(s): I82.431 - Acute embolism and thrombosis of right popliteal vein Is this a current diagnosis for this admission?: Yes (2) Hypertension Is this a current diagnosis for this admission?: Yes - Plan Summary Plan Summary: In this patient with DVT after coming off Coumadin, distant history of left- sided DVT, who also possibly has atrial fibrillation, indefinite anticoagulation seems well indicated. Coumadin seems to work well in the past and perhaps it is her best drug. For the time being I agree with inpatient use of heparin equivalent as a bridge. Leg elevation, use of compression stockings and adequate hydration. Consideration to be given to a course of antibiotic in case there is an element of cellulitis in the right leg. Otherwise past the patient can be managed as an outpatient starting in a few days. I would be happy to see her in office to follow the course of this interesting issue. A thrombophilia panel panel may be done although it is of limited clinical relevance since is going to require anticoagulation indefinitely. Thank you for having me see this very interesting lady. I will will be happy to see her in office in follow her while in hospital.
== END 2017-09-05 14:15 | disposition home or self-care (01) | DRG 301 ==
LOC: SP 10:31 → 4N 15:33
PROVIDERS: ADMIT Internal Medicine; ATTEND Internal Medicine
DX: I82.411 Acute embolism and thrombosis of right femoral vein (principal); I82.431 Acute embolism and thrombosis of right popliteal vein; I10 Essential (primary) hypertension
CPT/HCPCS: 36415; 80048; 80053; 81001; 85025; 85027; 85610; 85730; 93971; J1650; J3490; S0119

== ENCOUNTER → 2017-09-08 | Outpatient (CLI) | payer MEDICARE, BC ==
[2017-09-08 12:59] LABS: INTERNATIONAL RATION (INR) 4.71
[2017-09-08 13:00] LABS: PROTHROMBIN TIME 46.5 SEC (11.4-15.4)
== END ==
LOC: OD 11:18
PROVIDERS: ATTEND Internal Medicine
DX: Z79.01 Long term (current) use of anticoagulants (principal)
CPT/HCPCS: 36415; 85610

== ENCOUNTER → 2017-10-02 | Outpatient (CLI) | payer MEDICARE, BC ==
[2017-10-02 12:07] LABS: INTERNATIONAL RATION (INR) 1.45; PROTHROMBIN TIME 18.4 SEC (11.4-15.4)
== END ==
LOC: OD 10:54
PROVIDERS: ATTEND Internal Medicine
DX: Z51.81 Encounter for therapeutic drug level monitoring (principal); Z79.01 Long term (current) use of anticoagulants
CPT/HCPCS: 36415; 85610

== ENCOUNTER → 2017-10-13 | Outpatient (CLI) | payer MEDICARE, BC ==
[2017-10-13 11:27] LABS: INTERNATIONAL RATION (INR) 5.98
== END ==
LOC: OD 10:10
PROVIDERS: ATTEND Internal Medicine
DX: Z51.81 Encounter for therapeutic drug level monitoring (principal); Z79.01 Long term (current) use of anticoagulants
CPT/HCPCS: 36415; 85610

== ENCOUNTER → 2017-10-23 | Outpatient (CLI) | payer MEDICARE, BC ==
[2017-10-23 10:10] LABS: INTERNATIONAL RATION (INR) 4.22; PROTHROMBIN TIME 42.5 SEC (11.4-15.4)
== END ==
LOC: OD 09:18
PROVIDERS: ATTEND Internal Medicine
DX: Z51.81 Encounter for therapeutic drug level monitoring (principal); Z79.01 Long term (current) use of anticoagulants
CPT/HCPCS: 36415; 85610

== ENCOUNTER → 2017-10-30 | Outpatient (CLI) | payer MEDICARE, BC ==
[2017-10-30 11:15] LABS: INTERNATIONAL RATION (INR) 3.36; PROTHROMBIN TIME 35.6 SEC (11.4-15.4)
== END ==
LOC: OD 09:45
PROVIDERS: ATTEND Internal Medicine
DX: Z79.01 Long term (current) use of anticoagulants (principal)
CPT/HCPCS: 36415; 85610

== ENCOUNTER → 2017-11-10 | Outpatient (CLI) | payer MEDICARE, BC ==
[2017-11-10 11:15] LABS: PROTHROMBIN TIME 24.6 SEC (11.4-15.4)
== END ==
LOC: OD 10:15
PROVIDERS: ATTEND Internal Medicine
DX: I82.441 Acute embolism and thrombosis of right tibial vein (principal)
CPT/HCPCS: 36415; 85610

== ENCOUNTER → 2017-12-25 | Outpatient (CLI) | payer MEDICARE, BC ==
[2017-12-25 12:28] LABS: PROTHROMBIN TIME 19.9 SEC (11.4-15.4)
== END ==
LOC: OD 11:46
PROVIDERS: ATTEND Internal Medicine
DX: I82.441 Acute embolism and thrombosis of right tibial vein (principal)
CPT/HCPCS: 36415; 85610

== ENCOUNTER → 2018-01-08 | Outpatient (CLI) | payer MEDICARE, BC ==
[2018-01-08 11:03] LABS: INTERNATIONAL RATION (INR) 2.44; PROTHROMBIN TIME 27.6 SEC (11.4-15.4)
== END ==
LOC: OD 09:30
PROVIDERS: ATTEND Internal Medicine
DX: I82.441 Acute embolism and thrombosis of right tibial vein (principal)
CPT/HCPCS: 36415; 85610

== ENCOUNTER → 2018-03-02 | Outpatient (CLI) | payer MEDICARE, BC ==
[2018-03-02 11:15] LABS: INTERNATIONAL RATION (INR) 2.02; PROTHROMBIN TIME 23.8 SEC (11.4-15.4)
== END ==
LOC: OD 09:59
PROVIDERS: ATTEND Internal Medicine
DX: I82.441 Acute embolism and thrombosis of right tibial vein (principal)
CPT/HCPCS: 36415; 85610

== ENCOUNTER → 2018-04-27 | Outpatient (CLI) | payer MEDICARE, BC ==
[2018-04-27 13:21] LABS: ABSOLUTE BASOPHILS # (AUTO) 0.1 10^3/uL (0.0-0.2); ABSOLUTE EOSINOPHILS # (AUTO) 0.1 10^3/uL (0.0-0.6); ABSOLUTE LYMPHOCYTES (AUTO) 1.9 10^3/uL (0.5-4.7); ABSOLUTE MONOCYTES (AUTO) 0.6 10^3/uL (0.1-1.4); ABSOLUTE NEUT (AUTO) 6.3 10^3/uL (1.7-8.2); BASOPHILS % (AUTO) 0.6 % (0-2); EOSINOPHILS % (AUTO) 1.3 % (0-6); HEMATOCRIT 47.6 % (36.0-47.0); HEMOGLOBIN 15.7 g/dL (12.0-15.5); MEAN CORPUSCULAR HEMOGLOBIN 29.8 pg (27.0-33.4); MEAN CORPUSCULAR HGB CONC 33.1 g/dL (32.0-36.0); MEAN CORPUSCULAR VOLUME 90 fl (80-97); MONOCYTES % (AUTO) 6.3 % (3-13); PLATELET COUNT 405 10^3/uL (150-450); RED BLOOD COUNT 5.29 10^6/uL (3.72-5.28); RED CELL DISTRIBUTION WIDTH 14.9 % (11.5-14.0); SEGMENTED NEUTROPHILS % (AUTO) 70.8 % (42-78); TOTAL CELLS COUNTED % (AUTO) 100 %; WHITE BLOOD COUNT 8.8 10^3/uL (4.0-10.5)
[2018-04-27 13:24] LABS: INTERNATIONAL RATION (INR) 1.81; PROTHROMBIN TIME 21.9 SEC (11.4-15.4)
[2018-04-27 13:43] LABS: ALANINE AMINOTRANSFERASE 27 U/L (9-52); ALBUMIN 4.5 g/dL (3.5-5.0); ALKALINE PHOSPHATASE 90 U/L (38-126); ANION GAP 11 (5-19); ASPARTATE AMINO TRANSFERASE 28 U/L (14-36); BILIRUBIN,DIRECT 0.2 mg/dL (0.0-0.4); BILIRUBIN,TOTAL 0.6 mg/dL (0.2-1.3); BLOOD UREA NITROGEN 21 mg/dL (7-20); CALCIUM 9.4 mg/dL (8.4-10.2); CARBON DIOXIDE 30 mmol/L (22-30); CHLORIDE 102 mmol/L (98-107); GLUCOSE 78 mg/dL (75-110); POTASSIUM 4.7 mmol/L (3.6-5.0); SODIUM 142.6 mmol/L (137-145); TOTAL PROTEIN 6.7 g/dL (6.3-8.2)
== END ==
LOC: OD 11:45
PROVIDERS: ATTEND Family Medicine Geriatric Medicine
DX: I47.1 Supraventricular tachycardia (principal); I82.441 Acute embolism and thrombosis of right tibial vein; E66.9 Obesity, unspecified; E78.5 Hyperlipidemia, unspecified
CPT/HCPCS: 36415; 80053; 83735; 84443; 85025; 85610

== ENCOUNTER → 2018-05-04 | Outpatient (CLI) | payer MEDICARE, BC ==
[2018-05-04 10:24] LABS: INTERNATIONAL RATION (INR) 2.36; PROTHROMBIN TIME 26.9 SEC (11.4-15.4)
== END ==
LOC: OD 09:09
PROVIDERS: ATTEND Internal Medicine
DX: I82.441 Acute embolism and thrombosis of right tibial vein (principal)
CPT/HCPCS: 36415; 85610

== ENCOUNTER → 2018-06-01 | Outpatient (CLI) | payer MEDICARE, BC ==
[2018-06-01 11:57] LABS: PROTHROMBIN TIME 28.2 SEC (11.4-15.4)
== END ==
LOC: OD 10:46
PROVIDERS: ATTEND Internal Medicine
DX: I82.441 Acute embolism and thrombosis of right tibial vein (principal)
CPT/HCPCS: 36415; 85610

== ENCOUNTER 2018-06-08 11:41 | Emergency (ER) | payer MEDICARE, BC ==
[2018-06-08] MEDS ORDERED: TRANEXAMIC ACID INJ/PF 1,000 MG/10 ML SDV IV ONE ×4 (12:51→13:24)
--- NOTE | 2018-06-08 13:09 | ER Document Report ---
ED General - General Chief Complaint: Wound Infection Stated Complaint: WOUND INFECTION Time Seen by Provider: 06/08/18 12:46 Primary Care Provider: TEREZA MARTIN MD [Primary Care Provider] - Follow up as needed Mode of Arrival: Wheelchair Information source: Patient Notes: 82-year-old female with hypertension, hyperlipidemia who is on Coumadin due to a DVT presents from wound care with bleeding from her right lower extremity. reports that wound care physician thought that the patient had an abscess and when he cut into the leg it began bleeding profusely. Patient's last INR on June 01, 2018 was 2.5. She denies any shortness of breath, dizzin ess, chest pain. TRAVEL OUTSIDE OF THE [place] IN LAST 30 DAYS: No - HPI Onset: Just prior to arrival Onset/Duration: Sudden Quality of pain: No pain Severity: None Pain Level: Denies Associated symptoms: denies: Chest pain, Fever, Leg swelling, Nausea, Vomiting, Shortness of breath, Weakness Exacerbated by: Denies Relieved by: Denies Similar symptoms previously: No Recently seen / treated by doctor: Yes - Wound care this morning - Related Data Allergies/Adverse Reactions: Sulfa (Sulfonamide Antibiotics) Allergy (Intermediate, Verified 06/08/18 11:45) rash Past Medical History - General Information source: Patient - Social History Smoking Status: Never Smoker Frequency of alcohol use: None Drug Abuse: None Lives with: Spouse/Significant other Family History: Reviewed & Not Pertinent Patient has suicidal ideation: No Patient has homicidal ideation: No - Past Medical History Cardiac Medical History: Reports: Hx DVT, Hx Hypertension Musculoskeletal Medical History: Reports Hx Arthritis Psychiatric Medical History: Denies: Hx Depression Past Surgical History: Reports: Hx Hysterectomy Review of Systems - Review of Systems Notes: REVIEW OF SYSTEMS: CONSTITUTIONAL : Denies fever, chills, or sweats. Denies recent illness. Denies weight loss, recent hospitalizations. EENT: Denies visual changes, eye pain. Denies sore throat, oral lesions, difficulty swallowing. CARDIOVASCULAR: Denies chest pain. Denies palpitations. Denies lower extremity edema. RESPIRATORY: Denies cough. Denies shortness of breath, wheezing. GASTROINTESTINAL: Denies abdominal pain or distention. Denies nausea, vomiting, or diarrhea. Denies blood in vomitus, stools, or per rectum. Denies black, tarry stools. Denies constipation. GENITOURINARY: Denies difficulty urinating, painful urination, frequency, blood in urine, or vaginal discharge. MUSCULOSKELETAL: Denies back or neck pain or stiffness. Denies joint pain or swelling. SKIN: Denies rash, lesions or sores. HEMATOLOGIC : Denies easy bruising or bleeding. LYMPHATIC: Denies swollen glands. NEUROLOGICAL: Denies confusion or altered mental status. Denies loss of consciousness. Denies dizziness or lightheadedness. Denies headache. Denies weakness or paralysis. Denies problems difficulty with ambulation, slurred speech. Denies sensory loss, numbness, or tingling. Denies seizures. PSYCHIATRIC: Denies anxiety or stress. Denies depression, suicidal ideation, or homicidal ideation. Denies visual or auditory hallucinations. Physical Exam - Vital signs Vitals: Temp Pulse Resp BP Pulse Ox 97.7 F 66 18 153/61 H 97 06/08/18 12:02 06/08/18 12:02 06/08/18 12:02 06/08/18 12:02 06/08/18 12:02 - Notes Notes: PHYSICAL EXAMINATION: GENERAL: Well-appearing, well-nourished and in no acute distress. HEAD: Atraumatic, normocephalic. EYES: Pupils equal round and reactive to light, extraocular movements intact, conjunctiva are normal. ENT: Nares patent, oropharynx clear without exudates. Moist mucous membranes. NECK: Normal range of motion, supple without lymphadenopathy LUNGS: Breath sounds clear to auscultation bilaterally and equal. No wheezes rales or rhonchi. HEART: Regular rate and rhythm without murmurs ABDOMEN: Soft, nontender, nondistended abdomen. No guarding, no rebound. No masses appreciated. Female : deferred Musculoskeletal: Normal range of motion, no pitting or edema. No cyanosis. NEUROLOGICAL: Cranial nerves grossly intact. Normal speech, normal gait. Normal sensory, motor exams PSYCH: Normal mood, normal affect. SKIN: Warm, Dry, normal turgor, no rashes. Pulsatile bleeding of the right lower extremity. No associated expanding hematoma Course - Re-evaluation Re-evalutation: Laboratory 06/08/18 06/08/18 06/08/18 13:00 13:00 13:00 WBC 11.4 H RBC 5.47 H Hgb 16.3 H Hct 49.0 H MCV 90 MCH 29.9 MCHC 33.3 RDW 15.8 H Plt Count 400 Seg Neutrophils % 70.4 Lymphocytes % 19.2 Monocytes % 7.7 Eosinophils % 1.5 Basophils % 1.2 Absolute Neutrophils 8.0 Absolute Lymphocytes 2.2 Absolute Monocytes 0.9 Absolute Eosinophils 0.2 Absolute Basophils 0.1 PT 26.1 H INR 2.27 APTT 42.2 H Sodium 139.5 Potassium 4.4 Chloride 102 Carbon Dioxide 29 Anion Gap 9 BUN 22 H Creatinine 0.62 Est GFR ( Amer) > 60 Est GFR (Non-Af Amer) > 60 Glucose 92 Calcium 10.0 Total Bilirubin 0.5 Direct Bilirubin 0.1 Neonat Total Bilirubin Not Reportable Neonat Direct Bilirubin Not Reportable Neonat Indirect Bili Not Reportable AST 26 ALT 27 Alkaline Phosphatase 102 Total Protein 7.0 Albumin 4.3 Temp Pulse Resp BP Pulse Ox 97.7 F 75 16 141/71 H 98 06/08/18 12:02 06/08/18 14:57 06/08/18 14:57 06/08/18 14:57 06/08/18 14:57 06/08/18 13:09 82-year-old female presents with right lower extremity pulsatile bleeding after an I&D of what was suspected to be an abscess was performed at wound care. Patient is currently on Coumadin. Dressings soaked in TXA was placed on the wound and a compression dressing as long as a proximal blood pressure cuff was placed, leg elevated. 06/08/18 13:54 Patient reevaluated, pulsatile bleeding has stopped. We will continue to monitor the patient. Patient was monitored for over 2 hours to assess for rebleeding. This has not occurred. 06/08/18 21:55 Patient was evaluated and treated as appropriate for the patient's presenting symptoms and complaint, with consideration of any critical or life threatening conditions that may be associated with their obtained history and exam as noted above. All results were discussed with patient and her who is at the bedside. Patient provided the opportunity to ask questions, and express concerns. Patient was educated on treatments based on their presumed diagnosis as noted above. At this time we will discharge the patient with return precautions and follow-up recommendations. Verbal discharge instructions given a the bedside. Medication warnings reviewed. Patient is in agreement with this plan and has verbalized understanding of return precautions. After careful consideration I feel that that patient can be safely discharged from the emergency department, they were advised to followup with a primary care physician in 2-3 days. Dictation on this chart was performed using voice recognition software and may result in unintended grammatical, spelling, syntax or errors. - Vital Signs Vital signs: Temp Pulse Resp BP Pulse Ox 97.7 F 75 16 141/71 H 98 06/08/18 12:02 06/08/18 14:57 06/08/18 14:57 06/08/18 14:57 06/08/18 14:57 - Laboratory Result Diagrams: 06/08/18 13:00 06/08/18 13:00 Laboratory results interpreted by me: 06/08/18 06/08/18 06/08/18 13:00 13:00 13:00 WBC 11.4 H RBC 5.47 H Hgb 16.3 H Hct 49.0 H RDW 15.8 H PT 26.1 H APTT 42.2 H BUN 22 H Discharge - Discharge Clinical Impression: Arterial bleeding of leg, Lower extremity bleeding Hypertension Qualifiers: Hypertension type: unspecified Qualified Code(s): I10 - Essential (primary) hypertension Condition: Good Disposition: HOME, SELF-CARE Instructions: Antibiotic Ointment Protection ([facility]), Soap Cleansing ([facility]) Additional Instructions: You were seen for bleeding of your right lower extremity. This was controlled with quick clot and a compressive dressing. Please leave the dressing in place until tomorrow morning. If bleeding reoccurs please return to the emergency department immediately. You may resume your Coumadin tomorrow. If you experience any shortness of breath or any other symptoms concerning to you please return immediately. Follow up with your [id number] hours for further care or return to the ED IMMEDIATELY if symptoms worsen or you have any concerns. If you cannot afford to follow up with your primary care physician a list of low cost clinics have been provided at the end of your discharge papers as well. Most prescribed medications have multiple side effects. The safest thing to do is when filling your prescription speak to your pharmacist regarding possible interactions with your normal home medications and over the counter medications such as Ibuprofen, Tylenol, Benadryl. If you experience any symptoms that cause you discomfort or concern you should discontinue the medication immediately and return to the emergency room or call your primary care physician. Forms: Elevated Blood Pressure Referrals: TEREZA MARTIN MD [Primary Care Provider] - Follow up as needed
[2018-06-08 13:18] LABS: ABSOLUTE BASOPHILS # (AUTO) 0.1 10^3/uL (0.0-0.2); ABSOLUTE EOSINOPHILS # (AUTO) 0.2 10^3/uL (0.0-0.6); ABSOLUTE LYMPHOCYTES (AUTO) 2.2 10^3/uL (0.5-4.7); ABSOLUTE MONOCYTES (AUTO) 0.9 10^3/uL (0.1-1.4); BASOPHILS % (AUTO) 1.2 % (0-2); EOSINOPHILS % (AUTO) 1.5 % (0-6); HEMOGLOBIN 16.3 g/dL (12.0-15.5); LYMPHOCYTES % (AUTO) 19.2 % (13-45); MEAN CORPUSCULAR HEMOGLOBIN 29.9 pg (27.0-33.4); MEAN CORPUSCULAR HGB CONC 33.3 g/dL (32.0-36.0); MEAN CORPUSCULAR VOLUME 90 fl (80-97); MONOCYTES % (AUTO) 7.7 % (3-13); PLATELET COUNT 400 10^3/uL (150-450); RED BLOOD COUNT 5.47 10^6/uL (3.72-5.28); RED CELL DISTRIBUTION WIDTH 15.8 % (11.5-14.0); SEGMENTED NEUTROPHILS % (AUTO) 70.4 % (42-78); TOTAL CELLS COUNTED % (AUTO) 100 %; WHITE BLOOD COUNT 11.4 10^3/uL (4.0-10.5)
[2018-06-08 13:23] LABS: INTERNATIONAL RATION (INR) 2.27; PROTHROMBIN TIME 26.1 SEC (11.4-15.4)
[2018-06-08 13:24] LABS: PARTIAL THROMBOPLASTIN TIME 42.2 SEC (23.5-35.8)
[2018-06-08 13:29] LABS: ALANINE AMINOTRANSFERASE 27 U/L (9-52); ALBUMIN 4.3 g/dL (3.5-5.0); ALKALINE PHOSPHATASE 102 U/L (38-126); ANION GAP 9 (5-19); ASPARTATE AMINO TRANSFERASE 26 U/L (14-36); BILIRUBIN,DIRECT 0.1 mg/dL (0.0-0.4); BILIRUBIN,TOTAL 0.5 mg/dL (0.2-1.3); BLOOD UREA NITROGEN 22 mg/dL (7-20); CARBON DIOXIDE 29 mmol/L (22-30); CHLORIDE 102 mmol/L (98-107); GLUCOSE 92 mg/dL (75-110); POTASSIUM 4.4 mmol/L (3.6-5.0); SODIUM 139.5 mmol/L (137-145)
[2018-06-08 14:58] VITALS: BP 141/71
== END 2018-06-08 14:57 | disposition home or self-care (01) ==
LOC: ER 11:41
DX: R58 Hemorrhage, not elsewhere classified (principal); Z98.890 Other specified postprocedural states; I10 Essential (primary) hypertension; I82.409 Acute embolism and thrombosis of unspecified deep veins of unspecified lower extremity; Z79.01 Long term (current) use of anticoagulants; Z88.2 Allergy status to sulfonamides
CPT/HCPCS: 99283; 36415; 85025; 85610; 85730; 80053; J3490

== ENCOUNTER → 2018-07-06 | Outpatient (CLI) | payer MEDICARE, BC ==
[2018-07-06 10:38] LABS: INTERNATIONAL RATION (INR) 2.89; PROTHROMBIN TIME 31.6 SEC (11.4-15.4)
== END ==
LOC: OD 09:32
PROVIDERS: ATTEND Internal Medicine
DX: I82.441 Acute embolism and thrombosis of right tibial vein (principal)
CPT/HCPCS: 36415; 85610

== ENCOUNTER → 2018-08-12 | Outpatient (CLI) | payer MEDICARE, BC ==
[2018-08-12 09:54] LABS: INTERNATIONAL RATION (INR) 1.14; PROTHROMBIN TIME 15.2 SEC (11.4-15.4)
[2018-08-12 10:20] LABS: ANION GAP 9 (5-19); BLOOD UREA NITROGEN 17 mg/dL (7-20); CALCIUM 9.4 mg/dL (8.4-10.2); CARBON DIOXIDE 28 mmol/L (22-30); CHLORIDE 105 mmol/L (98-107); GLUCOSE 97 mg/dL (75-110); POTASSIUM 4.2 mmol/L (3.6-5.0); SODIUM 142.2 mmol/L (137-145)
== END ==
LOC: OD 09:20
PROVIDERS: ATTEND Physician Assistant Surgical
DX: Z01.812 Encounter for preprocedural laboratory examination (principal); I70.90 Unspecified atherosclerosis; I10 Essential (primary) hypertension
CPT/HCPCS: 36415; 80048; 85610

== ENCOUNTER → 2018-08-18 | Outpatient (CLI) | payer MEDICARE, BC ==
[2018-08-18 10:49] LABS: INTERNATIONAL RATION (INR) 1.62
== END ==
LOC: OD 09:52
PROVIDERS: ATTEND Internal Medicine
DX: I82.441 Acute embolism and thrombosis of right tibial vein (principal)
CPT/HCPCS: 36415; 85610

== ENCOUNTER → 2018-10-08 | Outpatient (CLI) | payer MEDICARE, BC ==
[2018-10-08 09:37] LABS: INTERNATIONAL RATION (INR) 1.57; PROTHROMBIN TIME 18.9 SEC (11.4-15.4)
== END ==
LOC: OD 08:57
PROVIDERS: ATTEND Internal Medicine
DX: I82.441 Acute embolism and thrombosis of right tibial vein (principal)
CPT/HCPCS: 36415; 85610

== ENCOUNTER → 2018-11-25 | Outpatient (CLI) | payer MEDICARE, BC ==
[2018-11-25 10:46] LABS: INTERNATIONAL RATION (INR) 3.43; PROTHROMBIN TIME 35.4 SEC (11.4-15.4)
== END ==
LOC: OD 09:48
PROVIDERS: ATTEND Internal Medicine
DX: I82.511 Chronic embolism and thrombosis of right femoral vein (principal)
CPT/HCPCS: 36415; 85610

== ENCOUNTER → 2018-12-07 | Outpatient (CLI) | payer MEDICARE, BC | LOC: OD 14:57 | PROVIDERS: ATTEND Internal Medicine | DX: I82.441 Acute embolism and thrombosis of right tibial vein (principal) | CPT/HCPCS: 36415; 85610 ==

== ENCOUNTER → 2018-12-29 | Outpatient (CLI) | payer MEDICARE, BC ==
[2018-12-29 13:50] LABS: INTERNATIONAL RATION (INR) 2.23; PROTHROMBIN TIME 25.1 SEC (11.4-15.4)
== END ==
LOC: OD 12:58
PROVIDERS: ATTEND Internal Medicine
DX: I82.511 Chronic embolism and thrombosis of right femoral vein (principal)
CPT/HCPCS: 36415; 85610

== ENCOUNTER → 2019-02-17 | Outpatient (CLI) | payer MEDICARE, BC ==
[2019-02-17 14:38] LABS: INTERNATIONAL RATION (INR) 1.18; PROTHROMBIN TIME 15.1 SEC (11.4-15.4)
== END ==
LOC: OD 13:54
PROVIDERS: ATTEND Internal Medicine
DX: I82.441 Acute embolism and thrombosis of right tibial vein (principal); I82.511 Chronic embolism and thrombosis of right femoral vein
CPT/HCPCS: 36415; 85610

== ENCOUNTER → 2019-03-03 | Outpatient (CLI) | payer MEDICARE, BC ==
[2019-03-03 13:18] LABS: INTERNATIONAL RATION (INR) 2.24; PROTHROMBIN TIME 25.2 SEC (11.4-15.4)
== END ==
LOC: OD 12:33
PROVIDERS: ATTEND Internal Medicine
DX: I82.511 Chronic embolism and thrombosis of right femoral vein (principal)
CPT/HCPCS: 36415; 85610

== ENCOUNTER → 2019-04-12 | Outpatient (CLI) | payer MEDICARE, BC ==
[2019-04-12 14:54] LABS: INTERNATIONAL RATION (INR) 1.36; PROTHROMBIN TIME 16.9 SEC (11.4-15.4)
== END ==
LOC: OD 14:16
PROVIDERS: ATTEND Internal Medicine
DX: I82.511 Chronic embolism and thrombosis of right femoral vein (principal)
CPT/HCPCS: 36415; 85610

== ENCOUNTER → 2019-04-16 | Outpatient (CLI) | payer MEDICARE, BC ==
[2019-04-16 12:32] LABS: INTERNATIONAL RATION (INR) 2.08; PROTHROMBIN TIME 23.7 SEC (11.4-15.4)
== END ==
LOC: OD 11:26
PROVIDERS: ATTEND Internal Medicine
DX: I82.511 Chronic embolism and thrombosis of right femoral vein (principal)
CPT/HCPCS: 36415; 85610

== ENCOUNTER → 2019-04-29 | Outpatient (CLI) | payer MEDICARE, BC ==
[2019-04-29 12:40] LABS: INTERNATIONAL RATION (INR) 2.51; PROTHROMBIN TIME 27.6 SEC (11.4-15.4)
== END ==
LOC: OD 12:04
PROVIDERS: ATTEND Internal Medicine
DX: I82.511 Chronic embolism and thrombosis of right femoral vein (principal)
CPT/HCPCS: 36415; 85610

== ENCOUNTER → 2019-06-03 | Outpatient (CLI) | payer MEDICARE, BC ==
[2019-06-03 12:45] LABS: INTERNATIONAL RATION (INR) 2.03; PROTHROMBIN TIME 23.3 SEC (11.4-15.4)
== END ==
LOC: OD 12:08
PROVIDERS: ATTEND Internal Medicine
DX: I82.511 Chronic embolism and thrombosis of right femoral vein (principal)
CPT/HCPCS: 36415; 85610

== ENCOUNTER → 2019-11-09 | Outpatient (CLI) | payer MEDICARE, BC ==
[2019-11-09 12:31] LABS: INTERNATIONAL RATION (INR) 4.01; PROTHROMBIN TIME 38.7 SEC (11.4-15.4)
== END ==
LOC: OD 11:43
PROVIDERS: ATTEND Internal Medicine
DX: I82.511 Chronic embolism and thrombosis of right femoral vein (principal)
CPT/HCPCS: 36415; 85610

== ENCOUNTER → 2019-11-30 | Outpatient (CLI) | payer MEDICARE, BC ==
[2019-11-30 17:41] LABS: INTERNATIONAL RATION (INR) 4.42; PROTHROMBIN TIME 41.7 SEC (11.4-15.4)
== END ==
LOC: OD 16:17
PROVIDERS: ATTEND Internal Medicine
DX: I82.511 Chronic embolism and thrombosis of right femoral vein (principal)
CPT/HCPCS: 36415; 85610

== ENCOUNTER → 2019-12-14 | Outpatient (CLI) | payer MEDICARE, BC ==
[2019-12-14 14:05] LABS: INTERNATIONAL RATION (INR) 1.87; PROTHROMBIN TIME 21.6 SEC (11.4-15.4)
== END ==
LOC: OD 12:41
PROVIDERS: ATTEND Internal Medicine
DX: I82.441 Acute embolism and thrombosis of right tibial vein (principal)
CPT/HCPCS: 36415; 85610

== ENCOUNTER → 2019-12-27 | Outpatient (CLI) | payer MEDICARE, BC ==
[2019-12-27 17:22] LABS: PROTHROMBIN TIME 28.6 SEC (11.4-15.4)
== END ==
LOC: OD 15:49
PROVIDERS: ATTEND Internal Medicine
DX: I82.441 Acute embolism and thrombosis of right tibial vein (principal)
CPT/HCPCS: 36415; 85610